=== PATIENT | male | born 1995 | race Caucasian/White ===

== ENCOUNTER 2019-06-18 11:59 | Emergency (ER) | payer BC, OTHER ==
[~2019-06-18] VITALS: Ht 185.4 cm; Wt 113.4 kg
[~2019-06-18 11:59] MED LIST: CODACEE120 PO
[2019-06-18] MEDS ORDERED: Vibramycin100 MG PO (14:36)
== END 2019-06-18 14:57 | disposition home or self-care (01) ==
LOC: ER 11:59
DX: S62.631A Displaced fracture of distal phalanx of left index finger, initial encounter for closed fracture (principal); Z23 Encounter for immunization; Z88.0 Allergy status to penicillin; Z88.1 Allergy status to other antibiotic agents; Z88.8 Allergy status to other drugs, medicaments and biological substances; W23.0XXA Caught, crushed, jammed, or pinched between moving objects, initial encounter
CPT/HCPCS: 11760; 73140; 90471; 90714; 99283-25

== ENCOUNTER 2019-06-20 11:18 | Emergency (ER) | payer BC ==
[~2019-06-20] VITALS: Ht 185.4 cm; Wt 113.4 kg
[~2019-06-20 11:18] MED LIST changes: +Vibramycin100 MG PO
== END 2019-06-20 12:24 | disposition home or self-care (01) ==
LOC: ER 11:18
DX: S62.631D Displaced fracture of distal phalanx of left index finger, subsequent encounter for fracture with routine healing (principal)
CPT/HCPCS: 99282